=== PATIENT | female | born 1960 | race Caucasian/White ===

== ENCOUNTER 2024-08-28 07:59 | Outpatient (CLI) | payer MEDICARE, SELFPAY ==
--- OUTSIDE RECORDS SUMMARY | 2024-08-28 08:02 | XMS_ITS | Encounter Summary ---
Author Organization Healthcare Address [address] 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 Role Phone Unavailable Primary Care Provider Unavailabl e Reason for Visit * Reason Onset Date Comments HCN - Patient Message 07/19/2022 Encounter Details Date Type Department Care Team (Late st Contact Info) Description 07/19/2022 Telephone [facility] [address] [place] [address] Jean-Pierre Colmenares, OD [address] [place] [id number] HCN - Patient Message Social History Tobacco Use Types Packs/Day Years Used Date Smoking Tobacco: Never Assessed Comments Unknown Sex and Gender Information Value Date Recorded Sex Assigned at Not on file Legal Sex Female 7:25 PM EDT Gender Identity Not on file Sexual Orientation Not on file documented as of this encounter Miscellaneous Notes * Telephone Encounter - [place]in - 07/19/2022 12:25 PM EDT Patient Phone Message Reason for Call: Urgent Appt request Neuro OPH ANGELA Provider requesting Neuro Oph to see. Concerned for possible tumor. 20/60 in left eye. Referring phone: [phone] Faxing note to [phone] Best contact number and optimal time of day to reach caller: Note: Please do not reply to this message. Follow-up communication and further actions as a result of this message need to be communicated with the patient directly, if the patient is not active onMyChart. If the patient is active on MyChart, they will receive notification of the communication/outcome via MyChart. documented in this encounter Plan of Treatment Not on file documented as of this encounter Visit Diagnoses Not on filedocumented in this encounter
--- OUTSIDE RECORDS SUMMARY | 2024-08-28 08:02 | XMS_ITS | Clinical Summary ---
Author Organization [facility] Address [address] [place] [address] Care Team Providers Care Director Of Neurology Name Role Phone Unavailable Primary Care Provider Unavailabl e Social History Tobacco Use Types Packs/Day Years Used Date Smoking Tobacco: Never Assessed Comments Unknown Sex and Gender Information Value Date Recorded Sex Assigned at Not on file Legal Sex Female 7:25 PM EDT Gender Identity Not on file Sexual Orientation Not on file Plan of Treatment Not on file
[2024-08-29 15:54] LABS: C difficile Toxins AB, EIA Negative (Negative)
[2024-08-31 07:09] LABS: Calprotectin, Fecal 1650 ug/g (0-120)
[2024-09-02 16:30] LABS: Pancreatic Elastase, Fecal 299 (>200)
[2024-09-05 23:08] LABS: Lactoferrin, Fecal, Quant. 91.23 ug/mL(g) (0.00-7.24)
== END 2024-08-28 23:59 | disposition home or self-care (01) ==
LOC: LAB 08:00
PROVIDERS: Visit Provider Internal Medicine Gastroenterology
DX: K52.9 Noninfective gastroenteritis and colitis, unspecified (principal)
CPT/HCPCS: 82656; 83630; 83993; 87324

== ENCOUNTER 2024-11-07 12:29 | Day surgery (SDC) | payer MEDICARE, SELFPAY ==
[2024-11-06 15:48] VITALS: BMI 21.3
[2024-11-07 12:51] VITALS: BP 133/84; PULSE 84; RESP 18; TEMP 36.2; O2SAT 99
[2024-11-07] MEDS: LACTATED RINGERS 1000ML 1,000 ML 50 ML IV (13:02)
--- NOTE | 2024-11-07 13:54 | EXP.HP ---
History of Present Illness *Admission Date: 11/07/24 *Reason for visit:: Severe diarrhea *History of present illness: Mrs. Carcamo is a 64-year-old female who has had episodic more severe diarrhea. Her third episode was this past summer. She initially had stool testing that was negative but finally went to [facility] (Dr. Vivi Santiago's group) and had what I believe is C. difficile PCR testing was positive for C. difficile. The patient also had norovirus. She was initially treated with vancomycin but continued to have symptoms. She was later treated with Dificid for full course and this was completed approximately 4 to 5 weeks ago. She is still having most she loose stools that are nonformed. She reports no blood or mucus with her bowel movements. She has had no gassiness or bloating. She reports no abdominal pain. She is not on any PPIs and reports no NSAID use. Her last colonoscopy was 10 years ago. The patient did have a CAT scan of the abdomen and pelvis at [facility] in July 2024 which was normal and unremarkable. She does state that her mother had pancreatic cancer at the age of 73. She has 2 maternal aunts with pancreatic cancer. Her father had nonpigmented gastric melanoma. The patient is taking [place] and probiotics. [facility] Disclaimer: The information contained in this section may have been updated after the patient was seen, as this information can be updated by other users. Medical History C. difficile diarrhea Metal plates in left arm Surgical History H/O spinal fusion History of hysterectomy Family History Other No significant family history Social History (Updated 11/07/24 @ 13:00 by Pallavi Salcedo RN) Smoking Status: Current some day smoker alcohol intake: current current occupational status: retired Travel in the last 8 weeks: None caffeine: Yes Have you lived/traveled outside [place] in past 30 days?: No Contact w/someone who lives/traveled outside US past 30 days?: No Exposure to someone with infectious disease in past 14 days?: No Do you have a fever (greater than 100.4 F or 38 C)?: No Have you tested positive for COVID-19: No Exposed to someone with COVID-19 in past 14 days?: No Do you have a sore throat?: No Do you have a cough?: No Do you have any weakness?: No Are you experiencing any nausea/vomitting?: No Do you have any diarrhea?: No Are you experiencing any unusual bleeding?: No Do you have any muscle aches/pain?: No Do you have any abdominal pain?: No Are you experiencing loss of taste or smell?: No Other Medical History Have you received the Pneumonia Vaccine: No Review of Systems Review of Systems Review of systems (narrative): Negative *Cardiovascular Comments: Negative *Gastrointestinal Comments: Negative *Genitourinary Comments: Negative *Musculoskeletal Comments: Negative *Neurologic Comments: Negative Meds Home Medications and Allergies Home Medications ?Medication ?Instructions ?Recorded ?Confirmed ?Type cholecalciferol (vitamin D3) 50 100 mcg PO DAILY 08/27/24 11/07/24 History mcg (2,000 unit) capsule fexofenadine 60 mg tablet (Mirtha 60 mg PO BID PRN allergies 08/27/24 11/07/24 History Allergy) loperamide 2 mg capsule (Imodium 2 mg PO Q6H PRN Stomach Upset 08/27/24 11/07/24 History A-D) multivitamin (Daily Multi-Vitamin 1 tab PO DAILY 08/27/24 11/07/24 History tablet) yrvsyb-semylzah-infkfwh 1 cap PO .With meals #90 caps 09/03/24 11/07/24 Rx 36,000-114,000-180,000 unit capsule,delay rel (Creon) mesalamine 1.2 gram tablet,delayed 2.4 g PO DAILY 11/05/24 11/07/24 History release (Lialda) pseudoephedrine HCl 120 mg 120 mg PO DAILY 11/06/24 11/07/24 History capsule,extended release New Prescriptions to Start Prescriptions: Allergies Allergy/AdvReac Type Severity Reaction Status Date / Time No Known Allergies Allergy Verified 11/07/24 12:48 Exam Data for Last 24 hours Vital signs and Labs for Last 24 Hours: Temp Pulse Resp BP Pulse Ox O2 Del Method 97.1 F L 84 18 133/84 99 Room Air 11/07/24 12:51 11/07/24 12:51 11/07/24 12:51 11/07/24 12:51 11/07/24 12:51 11/07/24 12:51 I & O for Last 24 hours: Intake & Output 11/04/24 11/05/24 11/06/24 11/07/24 23:59 23:59 23:59 23:59 Weight 132 lb *Routine HEENT Exam Head: Present normocephalic Eye: Present EOMI and PERRL ENT: Present mucous membranes moist *Routine Neck Exam Neck: Present supple *Routine Respiratory Exam Respiratory: Present CTA bilaterally *Routine Cardiovascular Exam Cardiovascular: Present RRR *Routine Abdominal Exam Abdominal: Present soft and normoactive bowel sounds; Absent tenderness *Routine Rectal Exam Rectal:: deferred *Routine Genitalia Exam Genitalia:: deferred *Routine Extremities Exam Extremities: Absent cyanosis, clubbing or edema *Routine Skin Exam Skin: Present warm; Absent rash *Routine Neurological Exam Neurological: Present alert and oriented X3 Assessment and Plan *Assessment and plan (1) Chronic colitis: Status: Acute Category: Medical Code(s): K52.9 - Noninfective gastroenteritis and colitis, unspecified (2) Chronic diarrhea: Status: Acute Category: Medical Code(s): K52.9 - Noninfective gastroenteritis and colitis, unspecified Plan A/P: 1. Chronic severe diarrhea is the preprocedural diagnosis. The patient will be anesthetized/sedated using MAC sedation. The patient has been seen and examined. Cardiac and lung assessment prior to the examination is stable. Proceed with planned diagnostic colonoscopy
--- NOTE | 2024-11-07 14:02 | P.PNANES_ITS ---
[facility] Disclaimer: The information contained in this section may have been updated after the patient was seen, as this information can be updated by other users. Medical History C. difficile diarrhea Metal plates in left arm Surgical History H/O spinal fusion History of hysterectomy Family History Other No significant family history Social History (Updated 11/07/24 @ 13:00 by Pallavi Salcedo RN) Smoking Status: Current some day smoker alcohol intake: current substance use type: denies use current occupational status: retired Travel in the last 8 weeks: None caffeine: Yes [facility] Anesthesia Checklist Patient Identification Patient Identification: Verbal (Name & ) Structural Data Admitted From: Home Planned Operative Procedure/s: colonoscopy Consent for Planned Operative Procedure(s) Verified: Yes NPO Status Verified Time NPO: 00:00 Airway Assessment Mallampati Score:: Class II C-Spine Mobility Assessed: Yes TMJ Mobility Assessed: Yes Dentition: Good Dentition Neurological Assessment Level of Consciousness: Awake, Alert and Appropriate Anesthesia Plan Anesthesia Risk discussed: Yes Anesthesia Plan: Verified ASA Class: II Anesthesia Type: MAC
[2024-11-07 14:04] VITALS: O2SAT 100
--- NOTE | 2024-11-07 14:07 | P.PCN_ITS ---
[facility] Procedure Note Date: 11/07/24 Time: 14:28 Procedure Note:: Colonoscopy Procedure Report: Colonoscopy with cold biopsies and monopolar ablation/coagulation of internal hemorrhoids Endoscopist: Alejo Nettles II, MD Referring physician: OREN Welch [address] [place] [address] Date of Procedure: November 07, 2024 Equipment: Olympus 190 variable stiffness pediatric colonoscope Sedation: MAC sedation Indication: Mrs. Carcamo is a 64-year-old female who is here for diagnostic colonoscopy. She was having episodic more severe diarrhea. Her third episode was this past summer. She initially had stool testing that was negative but finally went to [facility] (Dr. Vivi Santiago's group) and had what I believe is C. difficile PCR testing was positive for C. difficile. The patient also had norovirus. She was initially treated with vancomycin but continued to have symptoms. She was later treated with Dificid for full course and this was completed approximately 4 to 5 weeks prior to her office visit with me in August 2024. She was still having mostly loose stools that were nonformed. She reports no blood or mucus with her bowel movements. She does have some intermittent hemorrhoidal bleeding every couple of months. She has had no gassiness or bloating. She reports no abdominal pain. She is not on any PPIs and reports no NSAID use. Her last colonoscopy was 10 years ago. The patient did have a CAT scan of the abdomen and pelvis at [facility] in July 2024 which was normal and unremarkable. She does state that her mother had pancreatic cancer at the age of 73. She has 2 maternal aunts with pancreatic cancer. Her father had nonpigmented gastric melanoma. The patient is taking [place] and probiotics. I did recommend psyllium Konsyl, Florastor. Her fecal calprotectin level was 1650 mcg/g (normal less than 120) indicative of colitis. Her stool lactoferrin was also elevated. Her stool fecal elastase was borderline. I did place her on mesalamine and Creon. She has markedly improved. Procedure: Prior to the procedure, a history and physical exam was performed, and patient's medications and allergies were reviewed. The risks, benefits and alternatives of the sedation and procedure were discussed with the patient. All questions were answered and informed consent was obtained. The patient was brought to the procedure room. Patient identification and proposed procedure were verified by the physician and the nurse. The patient was placed in a left lateral decubitus position and the scope was passed under direct vision. Throughout the procedure, the patient's blood pressure, pulse, and oxygen saturations were monitored continuously. The colonoscopy was accomplished without difficulty. The patient tolerated the procedure well. Findings: On digital rectal examination there was normal rectal tone. There were no external hemorrhoids. The colonoscope was introduced through the anal canal to the rectum and advanced to the cecum. The ileocecal valve and appendiceal orifice were identified. The scope was advanced a short distance into the ileum which appeared grossly normal. The scope was then withdrawn into the colon. The cecum, ascending, transverse, descending, sigmoid and rectum were grossly normal. Random cold biopsies were taken from both the right and left colon to rule out microscopic/lymphocytic colitis. There were no mucosal abnormalities identified. Upon retroflexion within the rectum there were grade 2 internal hemorrhoids. The 3 columns of hemorrhoids were ablated using monopolar ablation/coagulation. The preparation was excellent throughout with Deland Preparation Score of 9. The cecal time was 12 minutes. Impression: 1. Normal colonoscopy with intubation of the terminal ileum 2. Grade 2 internal hemorrhoids status post monopolar ablation/coagulation Plan: I would continue psyllium/Konsyl, Florastor, Creon and mesalamine. I will follow-up the biopsies. The patient is clinically much improved. The patient will not require surveillance colonoscopy again for 10 years by ACS guidelines.
[2024-11-07 14:31] VITALS: BP 116/65; PULSE 64; RESP 18; TEMP 36.6; O2SAT 96
[2024-11-07 14:41] VITALS: BP 114/72; PULSE 56; RESP 17; O2SAT 98
[2024-11-07 14:51] VITALS: BP 99/68; PULSE 70; RESP 18; O2SAT 98
[2024-11-07 15:01] VITALS: BP 118/69; PULSE 61; RESP 18; O2SAT 97
== END 2024-11-07 15:07 | disposition home or self-care (01) ==
PROVIDERS: Visit Provider Internal Medicine Gastroenterology
PROC: 0DJD8ZZ Inspection of Lower Intestinal Tract, Via Natural or Artificial Opening Endoscopic (ICD-10-PCS; CPT 45378; principal; 2024-11-07 14:00)
DX: K52.9 Noninfective gastroenteritis and colitis, unspecified (principal); K64.1 Second degree hemorrhoids
CPT/HCPCS: 45380; 45388; J7120